=== PATIENT | male | born 1950 | race Caucasian/White ===

== ENCOUNTER 2019-03-27 19:59 | Emergency (ER) | payer BC ==
[~2019-03-27] VITALS: Ht 172.7 cm; Wt 106.8 kg
[2019-03-27 20:10] VITALS: TEMP 98.9
[2019-03-27] MEDS ORDERED: TENORETIC 50 501 TAB PO (20:51)
[2019-03-27] MEDS ORDERED: PRILOSEC 20MG20 MG PO (20:52)
[2019-03-27 20:58] LABS: BASO % 0.4 % (0.0-2.0); EOS # 0.3 (0.0-0.7); EOS % 3.5 % (0-4.0); GRAN # 5.3 (1.4-6.5); GRAN % 67.6 % (42.2-75.2); HEMATOCRIT 37.6 % (42.0-52.0); HEMOGLOBIN 12.8 g/dl (13.5-18.0); LYMPH # 1.5 (1.2-3.4); LYMPH % 18.3 % (20.0-51.0); MEAN CELL VOLUME 89 fl (80.0-100.0); MEAN CORPUSCULAR HEMOGLOBIN 30 pg (27.0-31.0); MEAN CORPUSCULAR HGB CONC 34 g/dl (33.0-37.0); MEAN PLATELET VOLUME 9.5 fl (7.4-10.4); MONO # 0.8 (0.1-0.6); MONO % 9.7 % (1.7-9.3); PLATELET COUNT 259 K/mm3 (130-400); RED BLOOD COUNT 4.23 M/mm3 (4.20-5.60); REDCELL DISTRIBUTION WIDTH-CV 12.6 % (11.5-14.5)
[2019-03-27 21:10] LABS: ALBUMIN 4.3 gm/dL (3.5-5.0); BILIRUBIN,TOTAL 0.2 mg/dL (0.0-1.0); C-REACTIVE PROTEIN 1.1 mg/dL (0.0-0.9); CREATININE, serum 1.26 (0.66-1.25); TOTAL PROTEIN 7.3 gm/dL (6.4-8.2)
[2019-03-27 21:21] LABS: ERYTHROCYTE SEDIMENTATION RATE 22 mm/hr (0-30)
[2019-03-27] MEDS ORDERED: CEPHALEXIN500 M1 PO (21:26)
[2019-03-27] MEDS ORDERED: BACTRIM DS 8001 TAB PO (21:26)
[2019-03-27 21:44] VITALS: BP 130/74; PULSE 56
== END 2019-03-27 21:47 | disposition home or self-care (01) ==
LOC: COL.ER 19:59
PROVIDERS: Physician Assistant
DX: L03.031 Cellulitis of right toe (principal)